=== PATIENT | male | born 1970 | race Caucasian/White ===

== ENCOUNTER 2023-04-01 18:42 | Emergency (ER) | payer OTHER ==
[~2023-04-01] VITALS: Ht 157.5 cm; Wt 82.6 kg
[2023-04-01 18:46] VITALS: BP 194/110
--- NOTE | 2023-04-01 19:30 | NUR ---
Received pt up in bed in stable condition; Arrives from home with c/o HTN. SBP >200 at home. Denies any other complaints at this time. Pt concerned due to recent hx of stroke. Family at bedside.
[2023-04-01] MEDS ORDERED: amLODIPine 5 MG TAB PO ONE (20:25)
--- NOTE | 2023-04-01 20:45 | NUR ---
Pt medicated as ordered; Will continue to monitor BP.
[2023-04-01 22:41] VITALS: BP 196/99
--- NOTE | 2023-04-01 22:41 | NUR ---
Patient discharged with v/s stable. Written and verbal after care instructions given and explained. Patient verbalized understanding. Ambulatory with steady gait. All questions addressed prior to discharge. Advised to follow up with PMD.
== END 2023-04-01 22:41 | disposition home or self-care (01) ==
LOC: MED 18:42
DX: I10 Essential (primary) hypertension (principal); Z86.73 Personal history of transient ischemic attack (TIA), and cerebral infarction without residual deficits
CPT/HCPCS: 99285